=== PATIENT | female | born 1960 | race Caucasian/White ===

== ENCOUNTER 2024-08-14 05:21 | Day surgery (SDC) | payer OTHER ==
[2024-08-08 12:54] VITALS: BP 95/71
[~2024-08-14] VITALS: Ht 158.8 cm; Wt 49.0 kg
[~2024-08-14 05:21] MED LIST: LEVO-T100 MCG PO
[2024-08-14] MEDS ORDERED: HEMOSTATIC MATRIX 1 KIT KIT TOP ONE (06:56)
[2024-08-14] MEDS ORDERED: DIBUCAINE 30 GM TUBE ONE (06:56)
[2024-08-14] MEDS ORDERED: BUPIVACAINE HCL/MPF 0.5% 30ML VIAL ONE (06:56)
[2024-08-14] MEDS ORDERED: POVIDONE-IODINE 118 ML BOTT TOP ONE (06:56)
[2024-08-14] MEDS ORDERED: METRONIDAZOLE/SODIUM CHLORIDE 500 MG/100 ML PIGGYBACK IV ONE (07:01)
[2024-08-14] MEDS ORDERED: CEFTRIAXONE SODIUM 2,000 MG VIAL ONE (07:01)
[2024-08-14] MEDS ORDERED: BUPIVACAINE LIPOSOME/PF 266 MG/20 ML VIAL IJ ONE (07:41)
[2024-08-14] MEDS ORDERED: PERCOCET 5-3251 EACH PO (09:41)
[2024-08-14] MEDS ORDERED: CELECOXIB200 MG PO (09:41)
[2024-08-14] MEDS ORDERED: NEURONTIN300 MG PO (09:41)
[2024-08-14] MEDS ORDERED: MIRALAX17 GM PO (09:42)
[2024-08-14] MEDS ORDERED: MORPHINE SULFATE 4 MG/ML VIAL IV ONE ×2 (12:30→13:30)
== END 2024-08-14 13:20 | disposition home or self-care (01) ==
LOC: CIR.AMB 05:21 → SURH 10:30 → CIR.AMB 10:30 → EDSTATUS 10:30 → CIR.AMB 13:20
PROVIDERS: ATTEND Surgery
DX: K64.2 Third degree hemorrhoids (principal); K64.5 Perianal venous thrombosis; K62.5 Hemorrhage of anus and rectum; Z88.1 Allergy status to other antibiotic agents; E03.8 Other specified hypothyroidism; M19.90 Unspecified osteoarthritis, unspecified site; H52.209 Unspecified astigmatism, unspecified eye